=== PATIENT | female | born 1985 | race Caucasian/White ===

== ENCOUNTER 2016-11-28 07:55 | Inpatient (IN) | payer OTHER ==
[2016-11-30] MEDS ORDERED: LR / Pitocin 40 units/1000 ml 1,000 ML IV PRN (18:20)
[2016-11-30] MEDS ORDERED: Lidocaine 1% (PF) 30 ML VIAL SC PRN (18:20)
[2016-11-30] MEDS ORDERED: Ibuprofen 800 MG TAB PO PRN (18:20)
[2016-11-30] MEDS ORDERED: Ondansetron HCl/PF 4 MG/2 ML Vial IVP PRN ×3 (18:20→23:48)
[2016-11-30] MEDS ORDERED: HYDROcodone/Acetaminophen 5/325 mg Tablet PO PRN ×4 (18:20→23:48)
[2016-11-30] MEDS ORDERED: LR 500 ML/Oxytocin 10 units 500 ML IV SCH (18:30)
[2016-11-30 18:40] VITALS: BMI 28.5
[2016-11-30] MEDS ORDERED: Fentanyl 4 mcg/Marc 0.1% Cadd 100 ML ONE (18:47)
[2016-11-30 19:05] LABS: Hematocrit 35.3 % (36.0-47.0); Mean Platelet Volume 8.2 fL (7.4-10.4); Red Blood Cell (RBC) Count 4.19 mill/uL (4.20-5.40); White Blood Cell (WBC) Count 7.2 thou/uL (4.8-10.8)
[2016-11-30] MEDS ORDERED: Promethazine HCl 25 MG/ML VIAL IM PRN (19:23)
[2016-11-30] MEDS ORDERED: Acetaminophen 325 MG TAB PO PRN (19:23)
[2016-11-30] MEDS ORDERED: Naloxone HCl 0.4 mg/ml Vial IVP PRN ×2 (19:23)
[2016-11-30] MEDS ORDERED: diphenhydrAMINE HCl 50 MG/ML 1 ML VIAL IVP PRN (19:23)
[2016-11-30] MEDS ORDERED: ePHEDrine/0.9% NaCl/PF SYRINGE 50 mg/10 ml SLOW IVP PRN (19:23)
[2016-11-30] MEDS ORDERED: Lactated Ringer's 500 ML IV PRN (19:23)
[2016-11-30] MEDS ORDERED: Eucerin (Mineral Oil/Petrolatum,White) 30 gm Jar TOP PRN (19:23)
[2016-11-30] MEDS ORDERED: Fentanyl 4mcg/Marcaine 0.1% Cassette 100 ML EPIDURAL SCH (19:30)
[2016-11-30] MEDS ORDERED: Communication Order-Pharmacy FS SCH (19:30)
[2016-11-30] MEDS ORDERED: LR / Pitocin 40 units/1000 ml 1,000 ML ONE ×2 (19:33→21:08)
[2016-11-30] MEDS ORDERED: Lidocaine 1% (PF) 30 ML VIAL ONE (19:33)
[2016-11-30] MEDS ORDERED: Ibuprofen 800 MG TAB ONE (21:17)
[2016-11-30] MEDS ORDERED: Milk Of Magnesia 30 ML UDCUP PO PRN (23:48)
[2016-11-30] MEDS ORDERED: Bisacodyl 10 MG SUPP PR PRN (23:48)
[2016-11-30] MEDS ORDERED: Preparation H Ointment 28 GM TUBE PR PRN (23:48)
[2016-11-30] MEDS ORDERED: Zolpidem Tartrate 5 MG TAB PO PRN (23:48)
[2016-11-30] MEDS ORDERED: LR / Pitocin 40 units/1000 ml 1,000 ML IV SCH (23:48)
[2016-11-30] MEDS ORDERED: diphenhydrAMINE HCl 25 MG CAP PO PRN (23:48)
[2016-11-30] MEDS ORDERED: Benzocaine/Menthol 20-0.5% 60 ML CAN TOP PRN (23:48)
[2016-12-01] MEDS: Docusate (Surfak) 240 MG CAP PO SCH ×3 (01:23→20:56)
[2016-12-01] MEDS: Ibuprofen 800 MG TAB PO SCH ×4 (01:23→20:56)
[2016-12-01] MEDS: Lactated Ringer's 1,000 ML IV SCH (01:24)
[2016-12-01] MEDS: Ferrous Sulfate 325 MG TAB PO SCH ×2 (09:09→18:48)
[2016-12-01] MEDS: Prenatal Vitamin 1 TAB PO SCH (09:12)
[2016-12-02] MEDS: Ibuprofen 800 MG TAB PO SCH ×2 (05:49→14:14)
[2016-12-02] MEDS ORDERED: Levothyroxine Sodium 75 MCG TAB PO SCH (06:00)
[2016-12-02 08:13] VITALS: BP 117/72; TEMP 97.9
[2016-12-02] MEDS ORDERED: Adacel (T-DAP) 0.5 ML VIAL IM ONE (09:00)
[2016-12-02] MEDS ORDERED: Varicella virus, LIVE 0.5 ML VIAL SC ONE (09:00)
[2016-12-02] MEDS ORDERED: Measles/Mumps/Rubella 10 MCG/0.5 ML VIAL SC ONE (09:00)
[2016-12-02] MEDS: Ferrous Sulfate 325 MG TAB PO SCH (09:33)
[2016-12-02] MEDS: Docusate (Surfak) 240 MG CAP PO SCH (09:38)
[2016-12-02] MEDS: Prenatal Vitamin 1 TAB PO SCH (09:38)
== END 2016-12-02 14:15 | disposition home or self-care (01) | DRG 775 ==
LOC: EDSTATUS 19:57 → L&D 11-30 18:08 → 3SW 11-30 23:36
PROVIDERS: ADMIT Obstetrics & Gynecology; ATTEND Obstetrics & Gynecology
PROC: 10E0XZZ Delivery of Products of Conception, External Approach (ICD-10-PCS; principal; 2016-11-30)
PROC: 0HQ9XZZ Repair Perineum Skin, External Approach (ICD-10-PCS; 2016-11-30)
DX: O70.0 First degree perineal laceration during delivery (principal); E03.9 Hypothyroidism, unspecified; Z3A.40 40 weeks gestation of pregnancy; Z37.0 Single live birth; O69.81X0 Labor and delivery complicated by cord around neck, without compression, not applicable or unspecified; O99.284 Endocrine, nutritional and metabolic diseases complicating childbirth
CPT/HCPCS: 85027; 86780; 87340; J2001